=== PATIENT | male | born 1955 | race Caucasian/White ===

== ENCOUNTER 2024-09-13 06:27 | Day surgery (SDC) | payer MEDICARE, OTHER, SELFPAY | END 2024-09-13 14:45 | disposition home or self-care (01) | LOC: GI 06:27 | PROVIDERS: ATTENDING PHYSICIAN Internal Medicine | DX: Z12.11 Encounter for screening for malignant neoplasm of colon (principal); K63.5 Polyp of colon; K57.30 Diverticulosis of large intestine without perforation or abscess without bleeding; K62.1 Rectal polyp; K64.8 Other hemorrhoids; Z83.719 Family history of colon polyps, unspecified | CPT/HCPCS: 45380; 88305 ==